=== PATIENT | female | born 1930 | race Caucasian/White ===

== ENCOUNTER → 2020-05-20 | Outpatient (CLI) | payer MEDICARE ==
[~2020-05-20] MED LIST: ASPIRIN81 M1 PO; EVISTA60 MG PO; FISH OIL 1,0001 EAC2 PO; LISINOPRIL20 MG PO
--- NOTE | 2020-05-20 14:14 | Diagnostic Imaging Report ---
EXAM: Renal Ultrasound INDICATION: ^[id number] ^[id number] ^RENAL INSUFFICIENCY COMPARISON: CT abdomen and pelvis of the same day TECHNIQUE: Transverse and longitudinal images of the kidneys and bladder were obtained. FINDINGS: Right Kidney: Length: 8.9 cm Appearance: Normal echogenicity. Collecting system: No hydronephrosis Stones: None Cyst/Mass: Lower pole anechoic cysts measure 1.1 x 1.0 x 0.9 cm and 1.7 x 1.9 x 1.9 cm. Left Kidney: Length: 8.7 cm Appearance: Normal echogenicity. Collecting system: No hydronephrosis Stones: None Cyst/Mass: None Bladder: Decompressed bladder. Bilateral ureteral jets visualized. Prevoid volume estimate of 11 cc. IMPRESSION: No hydronephrosis or renal calculi. Right lower pole simple cysts. Signed by: Keagan Gómez MD on 05/20/2020 2:11 PM
--- NOTE | 2020-05-20 14:45 | Diagnostic Imaging Report ---
EXAM: CT Abdomen and Pelvis WITHOUT intravenous contrast INDICATION: Abdominal pain, bloating COMPARISON: Renal ultrasound of the same day TECHNIQUE: Abdomen and pelvis were scanned utilizing a multidetector helical scanner from the lung base to the pubic symphysis without administration of IV contrast. Coronal and sagittal reformations were obtained. IV CONTRAST: None ORAL CONTRAST: Water COMPLICATIONS: None RADIATION DOSE: Total DLP: 484 mGy*cm Dose modulation, iterative reconstruction, and/or weight based adjustment of the mA/kV was utilized to reduce the radiation dose to as low as reasonably achievable. FINDINGS: LOWER THORAX: Normal. HEPATOBILIARY: No focal liver lesion. Unremarkable gallbladder. SPLEEN: No splenomegaly. PANCREAS: No focal masses or ductal dilatation. ADRENALS: Low-density 1.4 cm left adrenal nodule, likely a benign adenoma. No further follow-up imaging is necessary for this lesion. No right adrenal nodule. KIDNEYS/URETERS: Right lower pole 1.8 cm exophytic cyst. Smaller exophytic lesions at the midpole the right kidney likely correspond with the additional cysts seen on the renal ultrasound of the same day and are compatible with hyperdense cysts. No hydronephrosis or renal calculi. PELVIC ORGANS/BLADDER: Unremarkable. PERITONEUM / RETROPERITONEUM: There is a encapsulated right retroperitoneal mass containing fat and strands of soft tissue surrounding the right kidney and measuring up to approximately 10 cm in maximum dimension. No free air or free fluid. LYMPH NODES: No lymphadenopathy. VESSELS: Moderate atherosclerotic calcifications of the nonaneurysmal abdominal aorta and major branches. GI TRACT: Severe diverticulosis. No CT evidence of diverticulitis. No abnormal bowel thickening. No bowel obstruction. Increased stool burden throughout the colon. 4.5 cm small bowel diverticulum with an air-fluid level. BONES AND SOFT TISSUES: Mild diffuse osteopenia. No acute osseous injury. No suspicious lytic or blastic lesions. Degenerative changes of the visualized spine. IMPRESSION: Right retroperitoneal predominantly fatty mass with some components soft tissue surrounds the right kidney and measures approximately 10 cm maximum dimension. Lipomas and low grade liposarcomas can have this appearance. Recommend abdominal MRI with and without contrast for further evaluation. Right renal cysts, including hyperdense cysts, correspond with findings on the renal ultrasound of the same day. Left adrenal 1.4cm benign adenoma. Severe diverticulosis. Signed by: Keagan Gómez MD on 05/20/2020 2:42 PM
== END ==
LOC: US 12:50
PROVIDERS: ATTEND Emergency Medicine
DX: R10.9 Unspecified abdominal pain (principal)
CPT/HCPCS: 74176; 76770

== ENCOUNTER → 2020-06-08 | Outpatient (CLI) | payer MEDICARE ==
--- NOTE | 2020-06-08 13:31 | Diagnostic Imaging Report ---
TECHNIQUE: MRI of the abdomen WITHOUT intravenous contrast. INDICATION: 89-year-old woman with right upper quadrant abdominal swelling. COMPARISON: Abdomen and pelvis CT 05/20/2020, renal ultrasound 05/20/2020. FINDINGS: ABSENCE OF INTRAVENOUS CONTRAST DECREASES SENSITIVITY FOR DETECTION OF FOCAL LESIONS AND VASCULAR PATHOLOGY. LOWER THORAX: Unremarkable. LIVER: No hepatic signal abnormality. No focal hepatic lesions. BILIARY: Gallbladder is unremarkable. No biliary ductal dilatation or filling defect. SPLEEN: No splenomegaly. PANCREAS: No focal masses or ductal dilatation. ADRENALS: Decreased signal intensity of the 1.2 x 0.9 cm left adrenal nodule on opposed phase imaging, consistent with a benign adenoma. Unremarkable right adrenal gland. KIDNEYS/URETERS: Persistent bilateral perinephric fat stranding, right greater than left. No hydronephrosis. T1 hyperintense/T2 hypointense lesions in the right kidney measure 1.1 x 1.1 cm in the upper pole as well as 1 cm and 0.8 cm in the interpolar region. T2 hyperintense right renal cysts measure up to 1.8 x 2.1 cm. Subcentimeter T2 hyperintense left renal cyst. PERITONEUM/RETROPERITONEUM: No free fluid. LYMPH NODES: No lymphadenopathy. VESSELS: Unremarkable. GI TRACT: No distention or wall thickening. Unchanged diverticulum arises from the duodenojejunal junction. BONES AND SOFT TISSUES: Degenerative changes of the visualized spine with leftward convex curvature centered in the lumbar spine. Soft tissues are unremarkable. IMPRESSION: No retroperitoneal mass. Persistent nonspecific bilateral perinephric fat stranding, right greater than left; differential considerations include age-related changes, pyelonephritis, and renal cyst rupture. T1 hyperintense lesions in the right kidney may be debris-containing cysts, however neoplasm cannot be excluded on this noncontrast MRI. When feasible, abdomen CT or MRI with and without intravenous contrast (renal mass protocol) may be obtained for further characterization. Benign left adrenal adenoma. Signed by: Ese Sosa MD on 06/08/2020 1:28 PM
== END ==
LOC: MRI 10:35
PROVIDERS: ATTEND Emergency Medicine
DX: R19.01 Right upper quadrant abdominal swelling, mass and lump (principal)
CPT/HCPCS: 74181

== ENCOUNTER → 2020-08-24 | Outpatient (CLI) | payer MEDICARE ==
--- NOTE | 2020-08-25 07:29 | Diagnostic Imaging Report ---
EXAMINATION: CT of the face HISTORY: 89-year-old female status post fall, hit the left side of the head and face, pain COMPARISON: None available TECHNIQUE: Multidetector helical axial images were acquired through the face without contrast. Dose modulation, iterative reconstruction, and/or weight based adjustment of the mA/kV was utilized to reduce the radiation dose to as low as reasonably achievable. FINDINGS: Bones: No acute facial fractures. Facial soft tissues: Mild swelling of the left premaxillary soft tissues. Incidentally noted nonspecific hyperdense focus in the left floor of the mouth which may represent a foreign body such as a candy. Paranasal sinuses and drainage pathways: The frontal, ethmoidal, sphenoid and maxillary sinuses are clear. The ostiomeatal units, fronto-nasal and spheno-ethmoidal recesses are clear. Oral cavity: Limited evaluation due to streak artifact from metallic dental hardware, grossly no mass Orbits contents: Unremarkable. Nasal septum: Midline. Anatomic variations: No significant anatomic variations. Dentition: No acute abnormality of the visualized teeth. Cervical spine: Degenerative changes of the partially visualized upper cervical spine with disc osteophyte complex formation and facet arthrosis resulting in canal and foraminal narrowing at C5-C6 and C6-7. IMPRESSION: 1. No acute facial fractures. 2. Left premaxillary soft tissue swelling. 3. Hyperdense focus in the left floor of the mouth likely corresponds to a foreign body as above. Signed by: Dr. Anuradha White M.D. on 08/25/2020 7:26 AM
== END ==
LOC: CT 15:28
PROVIDERS: ATTEND Emergency Medicine
DX: S00.83XA Contusion of other part of head, initial encounter (principal); W19.XXXA Unspecified fall, initial encounter
CPT/HCPCS: 70486